=== PATIENT | female | born 2000 | race Caucasian/White ===

== ENCOUNTER → 2022-04-18 | Outpatient (CLI) | payer BC ==
--- NOTE | 2022-04-18 14:10 | US ---
EXAMINATION TYPE: US venous doppler duplex LE RT DATE OF EXAM: 04/18/2022 1:56 PM COMPARISON: NONE CLINICAL HISTORY: RLE I80.9 PHLEBITIS AND THROMBOPHLEBITIS. Right leg pain after ACL surgery SIDE PERFORMED: Right TECHNIQUE: The lower extremity deep venous system is examined utilizing real time linear array sonog arpita with graded compression, doppler sonography and color-flow sonography. VESSELS IMAGED: Common Femoral Vein Deep Femoral Vein Greater Saphenous Vein * Femoral Vein Popliteal Vein Small Saphenous Vein * Proximal Calf Veins (* superficial vessels) Right Leg: Appears negative for DVT Grayscale, color doppler, spectral doppler imaging performed of the deep veins of the right lower ext remity. There is normal flow, compressibility, vascular waveforms. IMPRESSION: No ultrasound evidence for acute DVT in the right lower extremity.
== END | disposition home or self-care (01) ==
LOC: RADUSWWP 12:50
PROVIDERS: ATTEND Orthopaedic Surgery
DX: I80.9 Phlebitis and thrombophlebitis of unspecified site (principal)

== ENCOUNTER 2023-12-22 13:23 | Day surgery (SDC) | payer BC ==
[~2023-12-22 13:23] MED LIST: HYDROmorphone 0.5 MG/0.5 ML SYRINGE IVP PRN; LIDOCAINE 1% (10MG/ML) FOR IV START INTRADERMA PRN; ONDANSETRON 4 MG/2 ML VIAL IVP PRN; SCOPOLAMINE 1 MG/72 HR PATCH TRANSDERM ONE
[2023-12-22] MEDS: IV FLUID CONTINUATION 1,000 ML IV ONE (14:15)
[2023-12-22] MEDS: ONDANSETRON 4 MG/2 ML VIAL IVP ONE (14:24)
[2023-12-22] MEDS: LACTATED RINGERS 1,000 ML IV SCH (14:24)
[2023-12-22] MEDS: DEXAMETHASONE SOD PHOSPHATE 4 MG/ML 1 ML VIAL IV ONE (14:24)
[2023-12-22] MEDS: MIDAZOLAM 2 MG/2 ML VIAL IVP ONE (14:54)
[2023-12-22] MEDS ORDERED: LIDOCAINE 1% INJ 10MG/ML (20 ML MDV) ONE (15:40)
[2023-12-22] MEDS ORDERED: fentaNYL (PF) 50 MCG/ML 2 ML AMP ONE (15:40)
[2023-12-22] MEDS ORDERED: PROPOFOL 10 MG/ML 20 ML VIAL IV ONE (15:40)
[2023-12-22] MEDS ORDERED: KETOROLAC 15 MG/ML 1 ML VIAL ONE (15:40)
[2023-12-22] MEDS ORDERED: HYDROmorphone (PF) 1 MG/ML ONE (15:40)
[2023-12-22] MEDS ORDERED: MIDAZOLAM 2 MG/2 ML VIAL ONE (15:40)
[2023-12-22] MEDS: BUPIVACAINE (PF) 0.25% 30 ML VIAL SQ ONE ×2 (16:14→17:11)
[2023-12-22] MEDS: LACTATED RINGERS 1,000 ML IV ONE (16:16)
--- NOTE | 2023-12-22 17:12 | P.OP ---
Date of Procedure: 12/22/23 Procedure(s) Performed: PREOPERATIVE DIAGNOSIS: 1. Right knee medial meniscus tear, bucket-handle displaced; 2. Status post anterior cruciate ligament reconstruction 2 years prior POSTOPERATIVE DIAGNOSIS: 1. Right knee medial meniscus tear, bucket handle displaced and 30% stellate radial tear; 2. 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 Right knee arthroscopy, with medial meniscus repair, all inside using 3 [employer] Truespan anchors; 2. 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 She is status post ACL reconstruction using quad tendon graft 2 years ago. Her graft is stable on clinical testing but she lacks full extension. MRI findings are suspicious for displaced bucket-handle meniscus tear involving the medial meniscus. Patient presents to the operating room today for arthroscopy with repair and evaluation of ACL graft. I have explained the procedure in detail to her and her mother, and explained potential risks and complications as being inclusive of but not limited to: Bleeding, infection, scarring, discomfort, blood vessel and/or nerve damage, failure to relieve symptoms, persistence or recurrence and/or worsening of symptoms, blood clot, pulmonary embolism, limp, , and other risks, including the need for knee replacement. The consent form has been signed by the patient's mother. PROCEDURE: After appropriate consent was obtained, the patient was taken to the operating room and placed supine on the operating table. General anesthesia was initiated. The knee was examined under anesthesia. Medial collateral, lateral collateral, and posterior cruciate ligaments were all intact. ACL showed positive anterior drawer with stable Vicky. Pivot shift was equivocal secondary to lack of full extension. Range of motion showed lack of full extension of 10 degrees. No effusion or soft tissue swelling was noted. Prepping and draping of the operative knee was performed in the usual sterile fashion using ChloraPrep. Care was taken that all pressure points were adequately padded. Leg bess and pneumotourniquet were used. ``Time-out" was called [facility], confirming patient identity, surgical procedure, side, and antibiotic administration. The surgical portals were recreated directly over the previous portals. Camera and instruments were carefully inserted into the knee and arthroscopy was performed. Patellofemoral joint was first inspected. Normal joint hyaline cartilage was noted without evidence of loose body synovitis or plica. Lateral compartment showed normal hyaline cartilage without defect. Lateral meniscus was visualized and probed, and found to be normal. Popliteal hiatus was normal. No loose bodies. Medial compartment was then examined. Medial meniscus tear was noted involving the posterior horn and noted was a displaced bucket handle-type tear with a stellate sizable radial component of 30% volume after visualization and probing. The tear was in the middle white-white zone. The tear was reduced into anatomic position and the radial component of the tear was resected using a shaver. The bucket handle portion was prepared using arthroscopic rasps. Subsequently 3 Truespan anchors from [employer] were deployed in oblique mat tress fashion to stabilize the tear. The tear was stabilized after this procedure to visualization and probing. Range of motion of the knee was tested and found to be full. Medial compartment hyaline cartilage showed moderate chondrosis, without need for focal chondroplasty or microfracture. Cruciate ligament graft of ACL was noted to be partially torn with a cyclops lesion. This cyclops lesion was also responsible for the lack of full extension in addition to the bucket handle tear. A portion of the anterior fibers of the graft was resected using a shaver until no impingement was noted in full extension against the notch. PCL was notedt to be intact. No loose bodies or ganglion cysts were noted around the cruciate ligaments. Medial and lateral gutters showed no evidence of loose bodies, but some mild synovitis was present and was resected with a shaver. For enhancement of healing of the meniscal repair and the ACL graft partial tear, 3 4 mm holes were placed using arthroscopic awls into the lateral side of the notch just above the ACL insertion. These holes were noted to be leaking blood/marrow and fat towards the end of the case. Portals were then closed with 4-0 Monocryl suture. A quantity of Marcaine solution was injected into the knee and around the portal sites. Full extension of the knee had been restored. Steri-Strips were applied and tourniquet was deflated. Sterile dressing and light compressive dressing was applied using Webril and DEMETRIUS wrap. Patient tolerated the procedure well and taken to recovery room in stable condition. Sponge and needle counts were correct.
[2023-12-22 17:22] VITALS: TEMP 96.9
[2023-12-22] MEDS: HYDROcodone/APAP 7.5-325MG 1 EACH TAB PO ONE (17:54)
[2023-12-22 18:07] VITALS: RESP 18
[2023-12-22 18:42] VITALS: BP 122/72; PULSE 65
== END 2023-12-22 19:08 | disposition home or self-care (01) ==
LOC: OR 13:23
PROVIDERS: ATTEND Orthopaedic Surgery
DX: S83.211A Bucket-handle tear of medial meniscus, current injury, right knee, initial encounter (principal); Z98.890 Other specified postprocedural states; X58.XXXA Exposure to other specified factors, initial encounter
CPT/HCPCS: 81025; 29882; 29888; J2250; J1100; J0690; J2405; J2001; J3010; J1170; J1885; J2704; J0665